=== PATIENT | female | born 1970 | race Caucasian/White ===

== ENCOUNTER 2025-06-22 06:00 | Day surgery (SDC) | payer OTHER ==
[2025-06-22] VITALS (9 sets, daily range): BP systolic 101–141; BP diastolic 73–93
[~2025-06-22] VITALS: Ht 172.7 cm; Wt 127.2 kg
[~2025-06-22 06:00] MED LIST: Acetaminophen325 M1 PO; CELEXA40 M1 PO; CYCL10 PO; GABA300 PO; HYDHCL25 PO; HYDPAM50 PO; Inderal40 MG PO; LAMICTAL ODT50 MG PO; MAG GLYCINATE100 MG PO; METF500 PO; METO10 PO; OMEP20ER PO; PRENATAL TABLE1 EAC2 PO; RIZATRIPTAN10 MG SL; VITAMIN D5000 UNIT PO; [UNRECOGNIZED DRUG - OTHER]
[2025-06-22] MEDS ORDERED: CeFAZolin Sodium 2,000 MG in NS 100 ML IV SCH (06:25)
[2025-06-22] MEDS ORDERED: CeFAZolin Sodium 3,000 MG in NS 100 ML IV SCH (06:30)
[2025-06-22] MEDS ORDERED: Bupivacaine 0.5% HCl 5 MG/ML 30MLVIAL ONE (06:59)
[2025-06-22] MEDS ORDERED: Midazolam HCl 1MG / ML 2ML Vial ONE (07:17)
[2025-06-22] MEDS ORDERED: HYDROmorphone HCl/Pf 1MG SYR ONE (07:17)
[2025-06-22] MEDS ORDERED: SuccINYLCHOLINE Chloride 100 MG/5 ML 5MLSYR ONE (07:31)
[2025-06-22] MEDS ORDERED: Ondansetron HCl 2 MG / ML 2ML Vial ONE ×2 (07:35→08:41)
[2025-06-22] MEDS ORDERED: Dexamethasone Sod Phos 10 MG/ML 1ML VIAL ONE (07:35)
[2025-06-22] MEDS ORDERED: FentaNYL Citrate 50 MCG/ML 2 ML Injection ONE (07:40)
[2025-06-22] MEDS ORDERED: FentaNYL Citrate 50 MCG/ML 2 ML Injection IV PRN ×2 (08:10→08:15)
[2025-06-22] MEDS ORDERED: Ondansetron HCl 2 MG / ML 2ML Vial IV PRN (08:15)
[2025-06-22] MEDS ORDERED: HYDROmorphone HCl/Pf 1MG SYR IV PRN ×2 (08:15)
[2025-06-22] MEDS ORDERED: HYDROcodone 5-APAP 325 TAB PO PRN (08:30)
--- NOTE | 2025-06-22 09:06 | NUR ---
Report received from Erendira JENKINS. VSS. Pt on RA. Pt A&OX4. Pt able to reposition self in bed. Pt requesting PO fluids and marilee them well. Pt has steri strips and gauze to R breast that is CDI. Pt also has breast binder in place that is CDI. Pt denies pain, nausea or other discomforts.
--- NOTE | 2025-06-22 09:43 | NUR ---
Patient up to Ambulate independently. Gait steady. VSS and consistent with pt baseline. Pt reports nausea has improved, denies pain, verbalizes readiness to go home. Discharge instructions reviewed with patient. Patient verbalizes understanding. Copy given to patient to take home. Dressing to procedure site clean, dry, intact with no visible drainage, swelling, erythema or bruising noted. Patient States Post-Procedure ride home has been arranged. Discharged via wheelchair to private car for ride home. Pt belongings returned to pt.
== END 2025-06-22 09:45 | disposition home or self-care (01) ==
LOC: ORSCMMR 06:00 → ORD 07:30 → ORSCMMR 09:45
PROVIDERS: Surgery
PROC: 0HBT0ZX Excision of Right Breast, Open Approach, Diagnostic (ICD-10-PCS; principal; 2025-06-22 07:30)
DX: D05.11 Intraductal carcinoma in situ of right breast (principal); R92.0 Mammographic microcalcification found on diagnostic imaging of breast; Z17.0 Estrogen receptor positive status [ER+]; Z17.22 Progesterone receptor negative status; Z17.32 Human epidermal growth factor receptor 2 negative status; K21.9 Gastro-esophageal reflux disease without esophagitis; Z79.899 Other long term (current) drug therapy; Z80.51 Family history of malignant neoplasm of kidney; Z80.3 Family history of malignant neoplasm of breast; Z79.84 Long term (current) use of oral hypoglycemic drugs; Z68.41 Body mass index [BMI] 40.0-44.9, adult
CPT/HCPCS: 82947; 88307; 88342; 88360; J0330; J0690; J1100; J1171; J2250; J2405; J2704; J3010; J7120